=== PATIENT | female | born 1950 | race Caucasian/White ===

== ENCOUNTER 2021-01-03 10:29 | Outpatient (CLI) | payer MEDICAID, MEDICARE | END 2021-01-03 10:30 | disposition home or self-care (01) | LOC: CSHMAMMO 10:29 | PROVIDERS: ATTEND Family Medicine Sports Medicine | DX: Z12.31 Encounter for screening mammogram for malignant neoplasm of breast (principal); Z85.89 Personal history of malignant neoplasm of other organs and systems | CPT/HCPCS: 77063; 77067 ==

== ENCOUNTER 2022-02-21 09:54 | Outpatient (CLI) | payer MEDICARE, OTHER | END 2022-02-21 09:55 | disposition home or self-care (01) | LOC: CSHMAMMO 09:54 | PROVIDERS: ATTEND Family Medicine Sports Medicine | DX: Z12.31 Encounter for screening mammogram for malignant neoplasm of breast (principal); Z13.820 Encounter for screening for osteoporosis; Z78.0 Asymptomatic menopausal state; Z85.89 Personal history of malignant neoplasm of other organs and systems | CPT/HCPCS: 77063; 77067; 77080 ==

== ENCOUNTER 2023-04-16 12:33 | Outpatient (CLI) | payer MEDICARE, OTHER | END 2023-04-16 12:34 | disposition home or self-care (01) | LOC: CSHMAMMO 12:33 | PROVIDERS: ATTEND Family Medicine Sports Medicine | DX: Z12.31 Encounter for screening mammogram for malignant neoplasm of breast (principal); Z85.89 Personal history of malignant neoplasm of other organs and systems | CPT/HCPCS: 77063; 77067 ==

== ENCOUNTER 2023-08-07 11:53 | Observation (INO) | payer OTHER ==
[2023-08-07 12:34] LABS: Actual Bicarbonate (HCO3v) 18.7 mEq/L (22-28); Analyzer IN Cardio CS ER; Base Excess -4.6 mEq/L (-2 - +2); Calcium, Ionized (venous) 1.02 mmol/L (1.16-1.32); Chloride (VBG) 99 mmol/L (98-106); Critical Notified By: T. CROSS; Hematocrit-VBG 39 % (36.0-47.0); Hemoglobin (Hb) 13.3 g/dL (11.7-16.1); Potassium (VBG) 3.92 mmol/L (3.70-5.30); Puncture Site Other Site; RapidComm Collect By KBI; Sodium 138 mmol/L (133-146); pH (venous) 7.417 (7.32-7.43)
[2023-08-07 12:36] LABS: #Basophils 0.04 10x3/uL (0.0-0.2); #Monocytes 0.59 10x3/uL (0.0-1.1); #Neutrophils 6.63 10x3/uL (1.5-8.4); %Basophils 0.4 % (0.0-2.0); %Eosinophils 3.7 % (0.0-6.0); %Lymphocytes 28.1 % (18.0-47.0); %Monocytes 5.5 % (0.0-10.0); %Neutrophils 61.9 % (40.0-75.0); Hematocrit 37.5 % (34.9-44.5); Hemoglobin 12.3 g/dL (12.0-15.5); Mean Corpuscular HGB CONC 32.8 g/dL (32.0-36.0); Mean Corpuscular Hemoglobin 24.7 pg (27.0-33.0); Mean Corpuscular Volume 75.5 fL (81.6-98.3); Mean Platelet Volume 11.1 fL (7.4-10.4); Platelet Count 309 10x3/uL (150-450); Red Blood Cell (RBC) Count 4.97 10x6/uL (3.90-5.03); White Blood Cell (WBC) Count 10.7 10x3/uL (3.5-10.5)
[2023-08-07 12:55] LABS: Phosphorus 4.2 mg/dL (2.3-4.7)
[2023-08-07 12:57] LABS: ALT (SGPT) 24 U/L (8-55); AST (SGOT) 35 U/L (5-34); Alkaline Phosphatase 91 U/L (40-110); Anion Gap 24 mmol/L (10-20); BUN (Urea Nitrogen) 19 mg/dL (9.8-20.1); Bilirubin, Total 0.6 mg/dL (0.2-1.2); Calc. Creatinine Clearance 0 mL/min (70-130); Calcium 9.4 mg/dL (7.8-10.44); Carbon Dioxide 17 mmol/L (23-31); Chloride 101 mmol/L (98-107); Estimated GFR 31; Glucose 169 mg/dL (83-110); Lipase 25 U/L (8-78); Magnesium 1.6 mg/dL (1.6-2.6); Potassium 4.1 mmol/L (3.5-5.1); Sodium 138 mmol/L (136-145)
[2023-08-07 13:00] LABS: Troponin I 0.023 ng/mL (< 0.028)
[2023-08-07 14:07] LABS: Bilirubin Neg (Negative); Blood, Urine Negative (Negative); Clarity Clear (Clear); Glucose, Urine (Dipstick) Normal (Negative); Ketone, Urine 5 mg/dL (Negative); Leukocyte Negative (Negative); Nitrite Negative (Negative); Protein, Urine (Dipstick) 30 mg/dl (Neg-Trace); Specific Gravity, Urine 1.025 (1.005-1.030); Urobilinogen Normal mg/dL (Less than 2)
[2023-08-07 14:41] LABS: Bacteria/HPF Rare-Few HPF (None Seen); CAUTI Indications for Culture Fever or rigors; RBC/HPF 0-3 HPF (0-3); WBC/HPF 0-3 HPF (0-3)
[2023-08-07 14:42] LABS: Calcium Oxalate Crystals Rare HPF (None Seen); Urine Culture Reflex No No
[2023-08-07] MEDS ORDERED: HYDROcodone/Acetaminophen 5/325 mg Tablet PO PRN (16:20)
[2023-08-07] MEDS ORDERED: Ondansetron ODT 4 MG TAB PO PRN (16:20)
[2023-08-07] MEDS ORDERED: Sodium Chloride 0.9% 1,000 ML IV SCH (16:30)
[2023-08-07 17:43] LABS: Lactic Acid 2.6 mmol/L (0.5-2.2)
[2023-08-07] MEDS ORDERED: Dextrose 50% Abboject 50 ML SYRINGE SLOW IVP PRN (18:10)
[2023-08-07] MEDS ORDERED: Dextrose 5% in Water 1,000 ML IV PRN (18:10)
[2023-08-07] MEDS ORDERED: Glucagon 1 MG/ML KIT IM PRN (18:10)
[2023-08-07] MEDS ORDERED: HumaLOG 300 UNITS/3 ML VIAL SC PRN (18:10)
[2023-08-07] MEDS ORDERED: Electrolyte Replacement Protocol 1 EACH FS ONE (18:11)
[2023-08-07 18:19] VITALS: BMI 29.5
[2023-08-07] MEDS ORDERED: Electrolyte Replacement Protocol FS PRN (18:30)
[2023-08-07] MEDS: Sodium Bicarbonate 50 MEQ in Sodium Chloride 0.9% 1,000 ML IV SCH (18:40)
[2023-08-07] MEDS ORDERED: hydrALAZINE 20 MG/ML VIAL SLOW IVP PRN (18:48)
[2023-08-07] MEDS: Heparin 5,000 UNITS/ML VIAL SC SCH (20:12)
[2023-08-07] MEDS: Magnesium 2 GM/50 ML(in water) 2 GM in Premix 1 BAG IVPB SCH (21:23)
[2023-08-07 21:41] LABS: Anion Gap 18 mmol/L (10-20); BUN (Urea Nitrogen) 18 mg/dL (9.8-20.1); Calc. Creatinine Clearance 35 mL/min (70-130); Calcium 8.7 mg/dL (7.8-10.44); Carbon Dioxide 19 mmol/L (23-31); Chloride 104 mmol/L (98-107); Estimated GFR 36; Glucose 122 mg/dL (83-110); Potassium 4.1 mmol/L (3.5-5.1); Sodium 137 mmol/L (136-145)
[2023-08-08] MEDS: Acetaminophen 325 MG TAB PO PRN (02:22)
[2023-08-08 03:42] LABS: #Basophils 0.03 10x3/uL (0.0-0.2); #Eosinphils 0.54 10x3/uL (0.0-0.5); #Monocytes 0.65 10x3/uL (0.0-1.1); #Neutrophils 4.06 10x3/uL (1.5-8.4); %Basophils 0.4 % (0.0-2.0); %Eosinophils 6.6 % (0.0-6.0); %Lymphocytes 35.1 % (18.0-47.0); %Neutrophils 49.7 % (40.0-75.0); Hematocrit 29.3 % (34.9-44.5); Hemoglobin 9.4 g/dL (12.0-15.5); Mean Corpuscular HGB CONC 32.1 g/dL (32.0-36.0); Mean Corpuscular Hemoglobin 24.5 pg (27.0-33.0); Mean Corpuscular Volume 76.5 fL (81.6-98.3); Mean Platelet Volume 11.4 fL (7.4-10.4); Platelet Count 223 10x3/uL (150-450); RBC Distribution Width 19.9 % (11.5-14.5); Red Blood Cell (RBC) Count 3.83 10x6/uL (3.90-5.03); White Blood Cell (WBC) Count 8.2 10x3/uL (3.5-10.5)
[2023-08-08 03:47] LABS: Anion Gap 15 mmol/L (10-20); BUN (Urea Nitrogen) 14 mg/dL (9.8-20.1); Calc. Creatinine Clearance 46 mL/min (70-130); Calcium 7.9 mg/dL (7.8-10.44); Carbon Dioxide 21 mmol/L (23-31); Chloride 107 mmol/L (98-107); Estimated GFR 49; Glucose 85 mg/dL (83-110); Potassium 3.6 mmol/L (3.5-5.1); Sodium 139 mmol/L (136-145)
[2023-08-08 04:05] LABS: Lactic Acid 0.8 mmol/L (0.5-2.2)
[2023-08-08 11:19] VITALS: BMI 29.5
[2023-08-08 13:05] VITALS: TEMP 98.2
[2023-08-08 13:12] LABS: Hemoglobin A1c 5.7 % (4.0-6.0)
[2023-08-08 13:50] VITALS: BP 152/82
== END 2023-08-08 13:34 | disposition home or self-care (01) ==
LOC: SUATTDRO 11:53 → CSHERS 11:53 → CSHTELE 16:23
PROVIDERS: ADMIT Internal Medicine; ATTEND Family Medicine
DX: N17.9 Acute kidney failure, unspecified (principal); E11.22 Type 2 diabetes mellitus with diabetic chronic kidney disease; I12.9 Hypertensive chronic kidney disease with stage 1 through stage 4 chronic kidney disease, or unspecified chronic kidney disease; N18.30 Chronic kidney disease, stage 3 unspecified; K52.9 Noninfective gastroenteritis and colitis, unspecified; R00.0 Tachycardia, unspecified; E87.21 Acute metabolic acidosis; F17.210 Nicotine dependence, cigarettes, uncomplicated; Z90.710 Acquired absence of both cervix and uterus; Z86.73 Personal history of transient ischemic attack (TIA), and cerebral infarction without residual deficits; Z90.49 Acquired absence of other specified parts of digestive tract
CPT/HCPCS: 71045; 80048 ×2; 80053; 81001; 82010; 82805; 82962 ×2; 83036; 83605 ×2; 83690; 83735; 84100; 84484; 85025 ×2; 96372; 96374; 97116; G0378 ×3; J1644 ×2; J3475; J7050; 36415; 36416

== ENCOUNTER 2023-11-19 13:07 | Outpatient (CLI) | payer OTHER | END 2023-11-19 13:08 | disposition home or self-care (01) | LOC: CSHMRI 13:07 | PROVIDERS: ATTEND Psychiatry & Neurology Neurology | DX: I63.9 Cerebral infarction, unspecified (principal); R93.1 Abnormal findings on diagnostic imaging of heart and coronary circulation; I35.8 Other nonrheumatic aortic valve disorders; I35.1 Nonrheumatic aortic (valve) insufficiency; G31.9 Degenerative disease of nervous system, unspecified; I67.89 Other cerebrovascular disease | CPT/HCPCS: 70551; 93306 ==